=== PATIENT | male | born 1975 | race Caucasian/White ===

== ENCOUNTER → 2016-11-20 | Outpatient (CLI) | payer OTHER ==
--- NOTE | 2016-11-20 23:10 | MR ---
MR brain without contrast, MR internal auditory canals HISTORY: Hearing loss, acoustic nerve disorder Multiplanar multisequence imaging through the brain. High-resolution small [id number] images throu gh the internal auditory canals. Patient refused intravenous contrast No comparisons Corpus callosum, cervical medullary junction, cerebellopontine angles are unremarkable. There is no r estricted diffusion to suggest subacute ischemia. The orbits show a symmetric appearance. 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 The cochlea, semicircular canals are symmetric. No hemorrhage or hydrocephalus . Brain signal is maintained with the exception of 2 hyperintensities within the periventricular whit e matter on the right measuring only 2 mm, nonspecific findings of questionable clinical significance . There are normal vascular flow voids. IMPRESSION: No evident internal auditory canal mass, no cerebellopontine angle mass. Additional findi ngs above.
== END | disposition home or self-care (01) ==
LOC: RADMRIMAIN 14:26
PROVIDERS: ATTEND Otolaryngology
DX: H91.92 Unspecified hearing loss, left ear (principal); H93.19 Tinnitus, unspecified ear; H93.3X9 Disorders of unspecified acoustic nerve
CPT/HCPCS: 70551